=== PATIENT | female | born 2000 | race Caucasian/White ===

== ENCOUNTER 2022-08-04 15:25 | Emergency (ER) | payer MEDICAID ==
[~2022-08-04] VITALS: Ht 162.6 cm; Wt 77.1 kg
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
[2022-08-04 16:38] VITALS: BP_SYST 136
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
--- NOTE | 2022-08-04 16:55 | NUR ---
PT STATES SHE NEEDED TO GET SOMETHING FROM HER CAR, STATES SHE WILL RETURN SHORTLY.
--- NOTE | 2022-08-04 16:57 | NUR ---
SPOKE WITH OFFICER FREDI AT [employer], STATES TO TELL PT TO COME TO [employer] [facility] IF SHE WOULD LIKE TO FILE A REPORT.
--- NOTE | 2022-08-04 17:01 | NUR ---
DR HART TO BEDSIDE FOR EVALUATION, UNABLE TO LOCATE PT.
--- NOTE | 2022-08-04 17:30 | NUR ---
DR HART IS UNABLE TO LOCATE PT
--- NOTE | 2022-08-04 17:55 | NUR ---
PT FINALLY RETURNED FROM HER CAR, STATES SHE FELL ASLEEP. EXPLAINED TO HER TO STAY ON [facility] AND WILL SEE HER SOON. PT STATES SHE WILL NOT LEAVE AGAIN
--- NOTE | 2022-08-04 18:39 | NUR ---
DR FUENTES AT BEDSIDE FOR EVALUATION.
--- NOTE | 2022-08-04 19:20 | NUR ---
Received report from CLOVIS Reddy; assuming care of patient at this time.
--- NOTE | 2022-08-04 20:00 | NUR ---
Patient resting comfortably in bed with significant other at bedside. Nad noted at this time.
[2022-08-04 20:09] VITALS: BP_SYST 133
--- NOTE | 2022-08-04 20:09 | NUR ---
Patient given written and verbal discharge instructions and verbalizes understanding. ER MD discussed with patient the results and treatment provided. Patient in stable condition. ID arm band removed. Rx of given. Patient educated on pain management and to follow up with PMD. Pain Scale 0/10. Opportunity for questions provided and answered. Medication side effect fact sheet provided. Patient A/Ox4, VSS, ambulatory, resp even and unlabored. Patient in stable condition upon discharge. Patient is accompanied by significant other upon discharge.
== END 2022-08-04 20:09 | disposition home or self-care (01) ==
LOC: SED 15:25
DX: S00.03XA Contusion of scalp, initial encounter (principal); Z79.899 Other long term (current) drug therapy; Y04.8XXA Assault by other bodily force, initial encounter; Y93.89 Activity, other specified; Y92.89 Other specified places as the place of occurrence of the external cause; Y99.8 Other external cause status
CPT/HCPCS: 99281